=== PATIENT | female | born 1970 | race African-American/Black ===

== ENCOUNTER 2022-01-14 09:34 | Inpatient (IN) | payer MEDICAID ==
[~2022-01-14] VITALS: Ht 149.9 cm; Wt 68.0 kg
[2022-01-14] MEDS ORDERED: ONDANSETRON HCL 4MG/2ML INJ IV STA (09:53)
[2022-01-14] MEDS ORDERED: MORPHINE SULFATE 4 MG/ML CPJ (NOT FOR IM USE) IV STA (09:53)
[2022-01-14 10:26] LABS: BASOPHILS % 0.5 % (0.0-2.0); EOSINOPHILS % 1.2 % (0.0-5.0); HEMATOCRIT. 36.2 % (36.0-48.0); HEMOGLOBIN. 11.6 g/dL (12.0-16.0); LYMPHOCYTES % 38.9 % (20.0-50.0); MEAN CORPUSCULAR HEMOGLOBIN 28.7 pg (28.0-32.0); MEAN CORPUSCULAR VOLUME 89.3 fL (81.0-99.0); MEAN PLATELET VOLUME 7.9 fl (7.4-10.4); MONOCYTES % 9.3 % (2.0-8.0); NEUTROPHILS % 50.1 % (40.0-76.0); PLATELET 299 x1000/uL (130-400); RED BLOOD CELL COUNT 4.06 mill/uL (4.2-5.4); RED CELL DISTRIBUTION WIDTH 14.7 % (11.6-14.6)
[2022-01-14 10:32] LABS: CHLORIDE 106 mEq/L (98-107)
[2022-01-14 10:34] LABS: HCG SCREEN NEGATIVE
[2022-01-14] MEDS ORDERED: ACETAMINOPHEN 650MG SUPP PR PRN ×2 (12:00)
[2022-01-14] MEDS ORDERED: MAGNESIUM/ALUMINUM HYDROXIDE/SIMETHICONE 30ML UDC PO PRN (12:00)
[2022-01-14] MEDS ORDERED: LORAZEPAM 0.5MG TABLET PO PRN (12:00)
[2022-01-14] MEDS ORDERED: ACETAMINOPHEN 325MG TABLET PO PRN ×2 (12:00)
[2022-01-14] MEDS ORDERED: CLONIDINE 0.1MG TABLET PO PRN (12:00)
[2022-01-14] MEDS ORDERED: DOCUSATE SODIUM 100MG CAPSULE PO PRN (12:00)
[2022-01-14] MEDS ORDERED: GUAIFENESIN 200MG/10ML SUGAR FREE UDC PO PRN (12:00)
[2022-01-14] MEDS ORDERED: DIPHENHYDRAMINE 50MG/ML VIAL IV PRN (12:00)
[2022-01-14] MEDS ORDERED: ENOXAPARIN 30MG/0.3ML SYR SUBCUT SCH (12:00)
[2022-01-14] MEDS: IPRATROPIUM/ALBUTEROL 0.5-3(2.5)MG/3ML NEB HHN SCH ×2 (12:59→22:04)
[2022-01-14] MEDS: HYDROCHLOROTHIAZIDE 25MG TABLET PO SCH (14:00)
[2022-01-14 14:35] VITALS: BP 110/50
[2022-01-14] MEDS: PANTOPRAZOLE 40MG DR TABLET PO SCH ×2 (15:47→20:47)
[2022-01-14] MEDS: LOSARTAN POTASSIUM 25 MG TABLET PO SCH (15:47)
[2022-01-14] MEDS: HYDROCODONE/ACETAMINOPHEN 5/325MG TABLET PO PRN ×2 (15:48→20:47)
[2022-01-14 16:00] VITALS: BP 102/58
[2022-01-14] MEDS ORDERED: LOSA25TA26 PO (17:48)
[2022-01-14] MEDS ORDERED: HYDR25TA PO ×2 (17:48→17:49)
[2022-01-14] MEDS ORDERED: ASPI-1497 PO (17:50)
[2022-01-14] MEDS ORDERED: CLON0.1T PO (17:50)
[2022-01-14 20:00] VITALS: BP 104/52
[2022-01-14 20:30] VITALS: BP_SYST 110; BP_SYST 115; BP_DIAS 68
[2022-01-14 20:55] LABS: CLARITY URINE CLEAR (CLEAR); COLOR URINE YELLOW (YELLOW); KETONES URINE NEGATIVE (NEGATIVE); LEUKOCYTE ESTERASE URINE NEGATIVE (NEGATIVE); NITRITE URINE NEGATIVE (NEGATIVE); OCCULT BLOOD URINE NEGATIVE (NEGATIVE); PROTEIN URINE NEGATIVE (NEGATIVE)
[2022-01-14 21:15] LABS: *AMPHETAMINES SCREEN URINE NEGATIVE (NEGATIVE); *BARBITURATES SCREEN URINE NEGATIVE (NEGATIVE); *BENZODIAZEPINES SCREEN URINE PRESUMTIVE POSITIVE (NEGATIVE); *COCAINE SCREEN URINE NEGATIVE (NEGATIVE); CANNABINOID URINE SCREEN NEGATIVE (NEGATIVE); METHADONE URINE SCREEN NEGATIVE (NEGATIVE); OPIATES URINE SCREEN PRESUMTIVE POSITIVE (NEGATIVE); PHENCYCLIDINE URINE SCREEN NEGATIVE (NEGATIVE)
[2022-01-14] MEDS ORDERED: NALOXONE HCL 0.4MG/ML VIAL IV PRN (22:15)
[2022-01-15] VITALS (7 sets, daily range): BP systolic 94–157; BP diastolic 46–84
[2022-01-15] MEDS: ONDANSETRON HCL 4MG/2ML INJ IV PRN ×2 (03:01→11:42)
[2022-01-15] MEDS: HYDROCODONE/ACETAMINOPHEN 5/325MG TABLET PO PRN (03:02)
[2022-01-15] MEDS: PANTOPRAZOLE 40MG DR TABLET PO SCH ×2 (05:48→20:49)
[2022-01-15] MEDS: IPRATROPIUM/ALBUTEROL 0.5-3(2.5)MG/3ML NEB HHN SCH ×4 (08:04→21:15)
[2022-01-15 08:33] LABS: BASOPHILS % 0.4 % (0.0-2.0); EOSINOPHILS % 1.8 % (0.0-5.0); HEMATOCRIT. 35.5 % (36.0-48.0); HEMOGLOBIN. 11.8 g/dL (12.0-16.0); LYMPHOCYTES % 47.5 % (20.0-50.0); MEAN CORPUSCULAR HEMOGLOBIN 29.4 pg (28.0-32.0); MEAN CORPUSCULAR VOLUME 88.8 fL (81.0-99.0); MEAN PLATELET VOLUME 8.2 fl (7.4-10.4); MONOCYTES % 8.6 % (2.0-8.0); NEUTROPHILS % 41.7 % (40.0-76.0); PLATELET 243 x1000/uL (130-400); RED CELL DISTRIBUTION WIDTH 14.3 % (11.6-14.6)
[2022-01-15 08:46] LABS: CHLORIDE 109 mEq/L (98-107)
[2022-01-15] MEDS ORDERED: ASPIRIN 81MG EC TABLET PO SCH (09:00)
[2022-01-15] MEDS ORDERED: ENOXAPARIN 40MG/0.4ML SYR SUBCUT SCH (09:00)
[2022-01-15] MEDS: LOSARTAN POTASSIUM 25 MG TABLET PO SCH (09:19)
[2022-01-15] MEDS: HYDROCHLOROTHIAZIDE 25MG TABLET PO SCH (09:20)
[2022-01-15] MEDS ORDERED: REGADENOSON 0.4 MG/5 ML IV NR (10:00)
[2022-01-15] MEDS: MORPHINE SULFATE 2 MG/ML CPJ (NOT FOR IM USE) IV PRN ×3 (11:40→21:40)
[2022-01-15] MEDS ORDERED: IOHEXOL-350 100 ML BOTTLE ONE ×2 (15:37→16:03)
[2022-01-16] VITALS: BP 131/64
[2022-01-16] MEDS: IPRATROPIUM/ALBUTEROL 0.5-3(2.5)MG/3ML NEB HHN SCH (01:10)
[2022-01-16 03:30] VITALS: BP 159/76
[2022-01-16] MEDS: PANTOPRAZOLE 40MG DR TABLET PO SCH (03:42)
[2022-01-16 03:45] VITALS: BP 159/76
[2022-01-16] MEDS: MORPHINE SULFATE 2 MG/ML CPJ (NOT FOR IM USE) IV PRN (03:45)
[2022-01-16 06:17] LABS: BASOPHILS % 0.4 % (0.0-2.0); EOSINOPHILS % 1.9 % (0.0-5.0); HEMATOCRIT. 35.7 % (36.0-48.0); HEMOGLOBIN. 11.8 g/dL (12.0-16.0); MEAN CORPUSCULAR HEMOGLOBIN 29.3 pg (28.0-32.0); MEAN CORPUSCULAR VOLUME 88.7 fL (81.0-99.0); MEAN PLATELET VOLUME 8.3 fl (7.4-10.4); MONOCYTES % 8.8 % (2.0-8.0); NEUTROPHILS % 50.9 % (40.0-76.0); PLATELET 236 x1000/uL (130-400); RED BLOOD CELL COUNT 4.03 mill/uL (4.2-5.4); RED CELL DISTRIBUTION WIDTH 13.9 % (11.6-14.6)
[2022-01-16 06:20] LABS: CHLORIDE 109 mEq/L (98-107)
== END 2022-01-16 06:00 | disposition left against medical advice (07) | DRG 48 ==
LOC: ER 09:34 → 8WST 11:38 → EDBEDREQ 12:03 → EDBEDREQTM 12:03 → ENRESERV 12:33
PROVIDERS: ADMIT Specialist; ATTEND Specialist
DX: G90.8 Other disorders of autonomic nervous system (principal); D64.9 Anemia, unspecified; E78.00 Pure hypercholesterolemia, unspecified; E78.5 Hyperlipidemia, unspecified; S06.0X0A Concussion without loss of consciousness, initial encounter; M94.0 Chondrocostal junction syndrome [Tietze]; R07.89 Other chest pain; S30.0XXA Contusion of lower back and pelvis, initial encounter; W08.XXXA Fall from other furniture, initial encounter; I10 Essential (primary) hypertension; Z20.822 Contact with and (suspected) exposure to COVID-19; I25.10 Atherosclerotic heart disease of native coronary artery without angina pectoris; R32 Unspecified urinary incontinence; Z90.49 Acquired absence of other specified parts of digestive tract; Z88.0 Allergy status to penicillin; Z79.899 Other long term (current) drug therapy; Y93.89 Activity, other specified; Y92.89 Other specified places as the place of occurrence of the external cause; Z90.711 Acquired absence of uterus with remaining cervical stump; Y99.8 Other external cause status; Z82.49 Family history of ischemic heart disease and other diseases of the circulatory system; I25.2 Old myocardial infarction
CPT/HCPCS: 36415; 71045; 71275; 72220; 80048; 80053; 80061; 80305; 81003; 82550; 82962; 83036; 83735; 83880; 84443; 84484; 84703; 85025; 85379; 87426; 93005; 93306; 93880; 93970; 94640; 94664; 99285; J1650; J2270; J2405; J2785; Q9967

== ENCOUNTER 2022-01-18 13:02 | Inpatient (IN) | payer MEDICAID ==
[~2022-01-18] VITALS: Ht 144.8 cm; Wt 77.7 kg
[~2022-01-18 13:02] MED LIST: ASPI-1497 PO; CLON0.1T PO; HYDR25TA PO; LOSA25TA26 PO
[2022-01-18 14:46] LABS: BASOPHILS % 0.7 % (0.0-2.0); EOSINOPHILS % 1.5 % (0.0-5.0); HEMATOCRIT. 34.8 % (36.0-48.0); HEMOGLOBIN. 11.5 g/dL (12.0-16.0); LYMPHOCYTES % 38.1 % (20.0-50.0); MEAN CORPUSCULAR HEMOGLOBIN 29.5 pg (28.0-32.0); MEAN CORPUSCULAR VOLUME 88.9 fL (81.0-99.0); MEAN PLATELET VOLUME 7.8 fl (7.4-10.4); MONOCYTES % 8.3 % (2.0-8.0); NEUTROPHILS % 51.4 % (40.0-76.0); PLATELET 258 x1000/uL (130-400); RED BLOOD CELL COUNT 3.92 mill/uL (4.2-5.4); RED CELL DISTRIBUTION WIDTH 14.6 % (11.6-14.6)
[2022-01-18 14:51] LABS: CHLORIDE 104 mEq/L (98-107)
[2022-01-18] MEDS ORDERED: ACETAMINOPHEN 325MG TABLET PO ONE (15:00)
[2022-01-18] MEDS ORDERED: ONDANSETRON HCL 4MG/2ML INJ IV ONE (15:00)
[2022-01-18] MEDS ORDERED: IOHEXOL-350 100 ML BOTTLE ONE (16:22)
[2022-01-18] MEDS ORDERED: MORPHINE SULFATE 4 MG/ML CPJ (NOT FOR IM USE) IV ONE (17:15)
[2022-01-18] MEDS ORDERED: ASPIRIN 325MG EC TABLET PO NR (19:45)
[2022-01-18 21:10] VITALS: BP 126/68
[2022-01-18] MEDS ORDERED: HYDROCODONE/ACETAMINOPHEN 10/325MG TABLET PO NR (22:30)
[2022-01-18] MEDS ORDERED: ONDANSETRON HCL 4MG/2ML INJ IV PRN ×2 (22:30→23:30)
[2022-01-18 23:19] VITALS: BP 126/68
[2022-01-18] MEDS ORDERED: DIPHENHYDRAMINE 50MG/ML VIAL IV PRN (23:30)
[2022-01-18] MEDS ORDERED: CLONIDINE 0.1MG TABLET PO PRN (23:30)
[2022-01-18] MEDS ORDERED: ZOLPIDEM TARTRATE 5MG TABLET PO PRN (23:30)
[2022-01-18] MEDS ORDERED: MAGNESIUM/ALUMINUM HYDROXIDE/SIMETHICONE 30ML UDC PO PRN (23:30)
[2022-01-18] MEDS ORDERED: ACETAMINOPHEN 325MG TABLET PO PRN ×2 (23:30)
[2022-01-19] MEDS ORDERED: IBUPROFEN 600MG TABLET PO PRN
[2022-01-19 00:22] VITALS: BP 87/41
[2022-01-19] MEDS ORDERED: SODIUM CHLORIDE 0.9% 1,000 ML IV ONE (00:30)
[2022-01-19 01:50] VITALS: BP 92/37
[2022-01-19 04:00] VITALS: BP 96/41
[2022-01-19] MEDS ORDERED: SODIUM CHLORIDE 0.9% INJ 3ML FLUSH IVF SCH (06:00)
[2022-01-19] MEDS ORDERED: CLONIDINE 0.1MG TABLET PO SCH (09:00)
[2022-01-19] MEDS ORDERED: LOSARTAN POTASSIUM 25 MG TABLET PO SCH (09:00)
[2022-01-19] MEDS ORDERED: ASPIRIN 81MG EC TABLET PO SCH (09:00)
[2022-01-19] MEDS ORDERED: HYDROCHLOROTHIAZIDE 25MG TABLET PO SCH (09:00)
== END 2022-01-19 05:45 | disposition left against medical advice (07) | DRG 48 ==
LOC: ER 13:35 → 6WST 16:35 → ENRESERV 20:08
PROVIDERS: ADMIT Internal Medicine; ATTEND Internal Medicine
DX: G90.8 Other disorders of autonomic nervous system (principal); E66.9 Obesity, unspecified; E78.00 Pure hypercholesterolemia, unspecified; I10 Essential (primary) hypertension; M54.2 Cervicalgia; M25.511 Pain in right shoulder; W18.39XA Other fall on same level, initial encounter; I25.10 Atherosclerotic heart disease of native coronary artery without angina pectoris; I25.2 Old myocardial infarction; Z90.49 Acquired absence of other specified parts of digestive tract; Z68.37 Body mass index [BMI] 37.0-37.9, adult; Y92.59 Other trade areas as the place of occurrence of the external cause; Y99.8 Other external cause status; Y93.89 Activity, other specified; Z88.0 Allergy status to penicillin; Z79.82 Long term (current) use of aspirin; Z79.899 Other long term (current) drug therapy
CPT/HCPCS: 36415; 71045; 71275; 73030; 80053; 83880; 84484; 85025; 93005; 99285; J2270; J2405; Q9967